=== PATIENT | male | born 1995 | race American Indian/Alaskan Native ===

== ENCOUNTER 2021-03-03 16:49 | Emergency (ER) | payer SELFPAY ==
[2021-03-03 17:40] VITALS: BP 131/81
--- NOTE | 2021-03-03 20:19 | Emergency Department Report ---
ED Head Trauma HPI - General Chief complaint: Head Injury Stated complaint: Concussion Source: patient Mode of arrival: Ambulatory Limitations: No Limitations - History of Present Illness Initial comments: Patient is a 25-year-old male presents emergency room with complaints of a head injury that occurred yesterday morning. Patient reports that a metal latch door fell onto his head. He states that he was getting packages underneath his truck and the metal door fell onto his head. He states since then he has been having headache and photophobia and nausea. He denies any loss of consciousness, vomiting, vision changes, numbness, weakness, bowel or bladder incontinence, any other injury. He is ambulatory without difficulty. no pmhx. No allergies to medications. - Related Data Previous Rx's Medication Instructions Recorded Last Taken Type Butalb/Acetaminophen/Caffeine 1 cap PO Q8HR PRN #12 cap 03/03/21 Unknown Rx [Fioricet 50-300-40 mg CAP] Ondansetron [Zofran Odt] 4 mg PO Q8HR PRN #12 tab.rapdis 03/03/21 Unknown Rx Allergies/Adverse reactions: Allergies Allergy/AdvReac Type Severity Reaction Status Date / Time No Known Allergies Allergy Unverified 03/03/21 17:40 ED Review of Systems ROS: Stated complaint: Concussion Other details as noted in HPI Comment: All other systems reviewed and negative ED Past Medical Hx - Medications Home Medications: Home Medications Medication Instructions Recorded Confirmed Last Taken Type Butalb/Acetaminophen/Caffeine 1 cap PO Q8HR PRN #12 cap 03/03/21 Unknown Rx [Fioricet 50-300-40 mg CAP] Ondansetron [Zofran Odt] 4 mg PO Q8HR PRN #12 tab.rapdis 03/03/21 Unknown Rx ED Physical Exam - General Limitations: No Limitations General appearance: alert, in no apparent distress - Head Head exam: Present: atraumatic, normocephalic, other (no skull or facial bony ttp, no hematoma) - Eye Eye exam: Present: normal appearance, PERRL, EOMI. Absent: periorbital swelling, periorbital tenderness - ENT ENT exam: Present: mucous membranes moist - Respiratory Respiratory exam: Present: normal lung sounds bilaterally. Absent: respiratory distress, wheezes, rales, rhonchi, stridor, chest wall tenderness, accessory muscle use, decreased breath sounds, prolonged expiratory - Cardiovascular Cardiovascular Exam: Present: regular rate, normal rhythm, normal heart sounds. Absent: systolic murmur, diastolic murmur, rubs, gallop - Neurological Exam Neurological exam: Present: alert, oriented X3, CN II-XII intact, normal gait. Absent: motor sensory deficit - Expanded Neurological Exam Expanded Patient oriented to: Present: person, place, time Speech: Present: fluid speech Cranial nerves: EOM's Intact: Normal, Gag Reflex: Normal, Facial Sensation: Normal Cerebellar function: Finger to Nose: Normal, Heel to [place]: Normal Sensory exam: Upper Extremity Light Touch: Normal, Upper Extremity Pin Prick: Normal, UE 2 Point Discrimination: Normal, Lower Extremity Light Touch: Normal, Lower Extremity Pin Prick: Normal, LE 2 Point Discrimination: Normal Motor strength exam: RUE: 5, LUE: 5, RLE: 5, LLE: 5 Best Eye Response ([place]): (4) open spontaneously Best Motor Response ([place]): (6) obeys commands Best Verbal Response ([place]): (5) oriented [place] Total: 15 - Psychiatric Psychiatric exam: Present: normal affect, normal mood - Skin Skin exam: Present: warm, dry, intact ED Course Vital Signs 03/03/21 17:39 Temperature 98.6 F Pulse Rate 73 Respiratory 15 Rate Blood Pressure 131/81 O2 Sat by Pulse 99 Oximetry - Medical Decision Making Patient is a 25-year-old male presents emergency room with complaints of a head injury that occurred yesterday morning. Patient reports that a metal latch door fell onto his head. He states that he was getting packages underneath his truck and the metal door fell onto his head. He states since then he has been having headache and photophobia and nausea. He denies any loss of consciousness, vomiting, vision changes, numbness, weakness, bowel or bladder incontinence, any other injury. He is ambulatory without difficulty. no pmhx. No allergies to medications. Vitals are stable. On exam no facial or skull bony tenderness palpation, no hematoma, no focal neuro deficit, ambulatory without difficulty. Symptoms could be related to minor head injury versus mild concussion. Jones CT head rule is 0, CT head imaging is not recommended. Patient given prescription for medication. Advised patient please take medication as prescribed. Increase fluid intake. Avoid screen time such as cell phone and TV and computer. Follow-up with a primary care doctor. Follow-up with your neurologist if symptoms are not improving. Return to emergency room for any new or worsening symptoms. Critical care attestation.: If time is entered above; I have spent that time in minutes in the direct care of this critically ill patient, excluding procedure time. ED Disposition Clinical Impression: Minor head injury without loss of consciousness Qualifiers: Encounter type: initial encounter Qualified Code(s): S09.90XA - Unspecified injury of head, initial encounter Disposition: HOME / SELF CARE / HOMELESS Is pt being admited?: No Does the pt Need Aspirin: No Condition: Stable Instructions: Concussion, Adult Additional Instructions: please take medication as prescribed. Increase fluid intake. Avoid screen time such as cell phone and TV and computer. Follow-up with a primary care doctor. Follow-up with your neurologist if symptoms are not improving. Return to emergency room for any new or worsening symptoms. Prescriptions: Butalb/Acetaminophen/Caffeine [Fioricet 50-300-40 mg CAP] 1 cap PO Q8HR PRN #12 cap PRN Reason: headache Ondansetron [Zofran Odt] 4 mg PO Q8HR PRN #12 tab.rapdis PRN Reason: nausea/vomiting Referrals: LAVELLE SORTO MD [Staff Physician] - 3-5 Days TAMARA TIWARI MD [Referring] - as needed Forms: Work/School Release Form(ED) Time of Disposition: 20:20 Print Language: PERUVIAN
== END 2021-03-03 21:00 | disposition home or self-care (01) ==
LOC: ED 16:49
DX: S09.90XA Unspecified injury of head, initial encounter (principal); Z79.899 Other long term (current) drug therapy; W19.XXXA Unspecified fall, initial encounter; Y93.89 Activity, other specified; Y92.89 Other specified places as the place of occurrence of the external cause; Y99.8 Other external cause status
CPT/HCPCS: 99282